=== PATIENT | female | born 1990 | race Hispanic/Latino ===

== ENCOUNTER 2016-09-28 19:55 | Emergency (ER) | payer MEDICAID ==
[2016-09-28 19:55] VITALS: BMI 30.9
[2016-09-28 20:08] VITALS: BP 131/65; PULSE 77; RESP 18; TEMP 98; O2SAT 99
--- NOTE | 2016-09-28 21:52 | C.PDOC ---
History Of Present Illness Patient is a 26 year old female who presents to the ER with a complaint of a sharp, substernal chest pain for the past 3 days. Patient has a PMHx of a heart murmur since . Denies fever, cough, recent travel or change with exertion. Chief Complaint (Nursing): Chest Pain History Per: Patient History/Exam Limitations: no limitations Onset/Duration Of Symptoms: Days (3) Current Symptoms Are (Timing): Still Present Quality: Sharp Associated Symptoms: Other ((-) Fever, Cough, change with exertion.) Modifying Factors: None Exacerbating Factors: None Alleviating Factors: None Recent travel outside of the [place]: No Past Medical History Reviewed: Historical Data, Nursing Documentation, Vital Signs Vital Signs: Last Vital Signs Temp 98 F 09/28/16 20:05 Pulse 77 09/28/16 20:05 Resp 18 09/28/16 20:05 BP 131/65 09/28/16 20:05 Pulse Ox 99 09/28/16 22:00 - Medical History PMH: No Chronic Diseases Surgical History: No Surg Hx - [facility] Procedures DELIVERY OF PRODUCTS OF CONCEPTION, EXTERNAL APPROACH (05/01/15) REPAIR FEMALE PERINEUM, EXTERNAL APPROACH (05/01/15) Family History: States: Unknown Family Hx - Social History Hx Tobacco Use: No Hx Alcohol Use: Yes Hx Substance Use: No - Immunization History Hx Tetanus Toxoid Vaccination: Yes Hx Influenza Vaccination: Yes Hx Pneumococcal Vaccination: No Review Of Systems Constitutional: Negative for: Fever Cardiovascular: Positive for: Chest Pain Respiratory: Negative for: Cough, SOB with Excertion Physical Exam - Physical Exam Appears: Non-toxic Skin: Normal Color, Warm, Dry Head: Atraumatic, Normacephalic Oral Mucosa: Moist Chest: Symmetrical, No Tenderness Cardiovascular: Rhythm Regular, Murmur (Systolic, left 4th intercostal space) Respiratory: Normal Breath Sounds, No Rales, No Rhonchi, No Wheezing Gastrointestinal/Abdominal: Soft, No Tenderness Neurological/Psych: Oriented x3, Normal Speech, Normal Cognition ED Course And Treatment ECG: Interpreted By Me, Viewed By Me ECG Interpretation: Normal Interpretation Of ECG: Normal axis and intervals Rate From EC O2 Sat by Pulse Oximetry: 99 (Room air) Pulse Ox Interpretation: Normal - Radiology CXR: Interpreted by Me, Viewed By Me CXR Interpretation: Yes: No Acute Disease Progress Note: EKG and CXR ordered. Disposition - Disposition Referrals: [facility] [Outside] [facility] [Outside] Disposition: HOME/ ROUTINE Disposition Time: 20:55 Condition: GOOD Additional Instructions: Thank you for letting us take care of you today. Your provider was Dr. Salamanca. You were treated for noncardiac chest pain. The emergency medical care you received today was directed at your acute symptoms. If you were prescribed any medication, please fill it and take as directed. It may take several days for your symptoms to resolve. Return to the Emergency Department if your symptoms worsen, do not improve, or if you have any other problems. Please contact your doctor or call one of the physicians/clinics you have been referred to that are listed on the Patient Visit Information form that is included in your discharge packet. Bring any paperwork you were given at discharge with you along with any medications you are taking to your follow up visit. Our treatment cannot replace ongoing medical care by a primary care provider (PCP) outside of the emergency department. Thank you for allowing the [facility] team to be part of your care today. Follow up with your doctor in 3-4 days for re-evaluation. Prescriptions: Ibuprofen [Motrin] 600 mg PO Q6 PRN #20 tab PRN Reason: Pain, Moderate (4-7) Instructions: Noncardiac Chest Pain (ED) - Clinical Impression Clinical Impression: Non-cardiac chest pain - Scribe Statement The provider has reviewed the documentation as recorded by the Scribe Gee Person All medical record entries made by the Scribe were at my direction and personally dictated by me. I have reviewed the chart and agree that the record accurately reflects my personal performance of the history, physical exam, medical decision making, and the department course for this patient. I have also personally directed, reviewed, and agree with the discharge instructions and disposition.
--- NOTE | 2016-09-29 10:25 | RAD ---
HISTORY: r/o infiltrate COMPARISON: 03/05/2016. TECHNIQUE: Chest PA and lateral FINDINGS: LUNGS: The lungs are well inflated and clear. PLEURA: No significant pleural effusion identified. No pneumothorax apparent. CARDIOVASCULAR: Normal. OSSEOUS STRUCTURES: No significant abnormalities. VISUALIZED UPPER ABDOMEN: Normal. OTHER FINDINGS: None. IMPRESSION: No active pulmonary disease.
== END 2016-09-28 21:09 | disposition home or self-care (01) ==
LOC: C.ER 19:55
DX: R07.89 Other chest pain (principal)

== ENCOUNTER 2017-10-10 10:26 | Emergency (ER) | payer MEDICAID ==
[2017-10-10 10:26] VITALS: BMI 30.9
--- NOTE | 2017-10-10 11:04 | C.PDOC ---
History Of Present Illness 27 year old female, with no significant PMHx, presents to the ED for evaluation of chest pain which began 3 days ago. Patient describes her pain as sharp and states is worsens when taking a deep breath and with movement. She has been taking Motrin and Tylenol without relief. Patient denies fever, chills, cough, shortness of breath, abdominal pain, leg pain, or recent travel. Chief Complaint (Nursing): Chest Pain History Per: Patient History/Exam Limitations: no limitations Onset/Duration Of Symptoms: Days (3) Current Symptoms Are (Timing): Still Present Quality: Sharp, "Pain" Exacerbating Factors: Movement, Deep Breathing Recent travel outside of the [place]: No Additional History Per: Patient Past Medical History Reviewed: Historical Data, Nursing Documentation, Vital Signs Vital Signs: Last Vital Signs Temp 98.8 F 10/10/17 10:34 Pulse 109 H 10/10/17 10:34 Resp 20 10/10/17 10:34 BP 117/85 10/10/17 10:34 Pulse Ox 97 10/10/17 11:11 - Medical History PMH: No Chronic Diseases Surgical History: No Surg Hx - [facility] Procedures DELIVERY OF PRODUCTS OF CONCEPTION, EXTERNAL APPROACH (05/01/15) REPAIR FEMALE PERINEUM, EXTERNAL APPROACH (05/01/15) Family History: States: Unknown Family Hx - Social History Hx Tobacco Use: No Hx Alcohol Use: Yes Hx Substance Use: No - Immunization History Hx Tetanus Toxoid Vaccination: Yes Hx Influenza Vaccination: Yes Hx Pneumococcal Vaccination: No Review Of Systems Constitutional: Negative for: Fever, Chills Cardiovascular: Positive for: Chest Pain Respiratory: Negative for: Cough, Shortness of Breath Gastrointestinal: Negative for: Abdominal Pain Physical Exam - Physical Exam Appears: Non-toxic, No Acute Distress Skin: Normal Color, Warm, Dry Head: Atraumatic, Normacephalic Eye(s): bilateral: Normal Inspection Oral Mucosa: Moist Neck: Supple Chest: Symmetrical, No Deformity, Tenderness (reproducible, to chest wall ) Cardiovascular: Rhythm Regular, No Murmur Respiratory: Normal Breath Sounds, No Rales, No Rhonchi, No Wheezing Gastrointestinal/Abdominal: Soft, No Tenderness, No Guarding, No Rebound Extremity: Normal ROM, No Tenderness, Capillary Refill (less than 2 seconds ) Neurological/Psych: Oriented x3, Normal Speech, Normal Cognition ED Course And Treatment - Laboratory Results Result Diagrams: 10/10/17 11:16 10/10/17 11:16 ECG: Interpreted By Me, Viewed By Me ECG Rhythm: Sinus Rhythm Interpretation Of ECG: Normal Sinus Rhythm at rate 95bpm. Normal intervals. Normal axis. No ST/T wave abnormalities. Rate From EC O2 Sat by Pulse Oximetry: 97 (on RA) Pulse Ox Interpretation: Normal Medical Decision Making Medical Decision Making: Assessment: chest pain Plan: * bloodwork * urinalysis * CXR * EKG * Toradol IVP * reassess and disposition Progress: bloodwork, urinalysis, CXR, EKG ordered and reviewed. Toradol IVP administered. patient improved. ct chest no pe, will discharge home to follow up with pmd in 2 days. Disposition Counseled Patient/Family Regarding: Studies Performed, Diagnosis, Need For Followup, Rx Given - Disposition Referrals: [facility] [Outside] Disposition: HOME/ ROUTINE Disposition Time: 13:58 Condition: STABLE Additional Instructions: follow up with your doctor in 2 days call to make an appointment take medication as prescribed return to ER if symptoms worsens or progress Prescriptions: Naproxen [Naprosyn] 500 mg PO BID PRN #16 tab PRN Reason: Pain, Moderate (4-7) Instructions: Costochondritis (DC) Forms: [facility] (South Korean), General Discharge Instructions, Work Excuse - Clinical Impression Clinical Impression: Chest wall pain - Scribe Statement The provider has reviewed the documentation as recorded by the Scribe (Jolynn Villeda) Provider Attestation: All medical record entries made by the Scribe were at my direction and personally dictated by me. I have reviewed the chart and agree that the record accurately reflects my personal performance of the history, physical exam, medical decision making, and the department course for this patient. I have also personally directed, reviewed, and agree with the discharge instructions and disposition.
[2017-10-10 11:20] LABS: BASO % 0.5 % (0.0-2.0); EOS # 0.3 K/uL (0.0-0.7); EOS % 4.7 % (0.0-4.0); HEMOGLOBIN 13.9 g/dL (11.0-16.0); LYMPH # 1.8 K/uL (1.0-4.3); LYMPH % 29.6 % (20.0-40.0); MEAN CELL VOLUME 82.8 fL (81.0-99.0); MEAN CORPUSCULAR HEMOGLOBIN 28.7 pg (27.0-31.0); MEAN CORPUSCULAR HGB CONC 34.7 g/dL (33.0-37.0); MEAN PLATELET VOLUME 7.7 fL (7.2-11.7); MONO # 0.3 K/uL (0.0-0.8); MONO % 5.3 % (0.0-10.0); NEUT # 3.7 K/uL (1.8-7.0); NEUT % 59.9 % (50.0-75.0); RBC 4.85 Mil/uL (3.80-5.20); RED CELL DISTRIBUTION WIDTH 12.8 % (11.5-14.5); WHITE BLOOD COUNT 6.1 K/uL (4.8-10.8)
[2017-10-10 11:28] LABS: SQUAMOUS EPITHIAL 12 /hpf (0-5); URINE BACTERIA RARE (<OCC); URINE BILIRUBIN NEGATIVE (NEGATIVE); URINE BLOOD NEGATIVE (NEGATIVE); URINE CLARITY Hazy (Clear); URINE COLOR Amber (YELLOW); URINE GLUCOSE (UA) NORMAL (Normal); URINE LEUKOCYTE ESTERASE 2+ Leu/uL (Negative); URINE PROTEIN NEGATIVE (NEGATIVE); URINE UROBILINOGEN NORMAL mg/dL (0.2-1.0)
[2017-10-10 11:34] LABS: ALB/GLOB RATIO 1.2 (1.0-2.1); ALBUMIN 4.5 g/dL (3.5-5.0); ALT/SGPT 37 U/L (9-52); AST/SGOT 31 U/L (14-36); BLOOD UREA NITROGEN 12 mg/dL (7-17); CALCIUM 9.3 mg/dl (8.6-10.4); GFR AFRICAN-AMERICAN > 60; GFR NON-AFRICAN AMERICAN > 60
--- NOTE | 2017-10-10 11:43 | RAD ---
HISTORY: COMPARISON: 09/28/2016 TECHNIQUE: Chest PA and lateral FINDINGS: LINES AND TUBES: None. LUNG AND PLEURA: The lungs are well inflated and clear. No pleural effusion or pneumothorax. HEART AND MEDIASTINUM: The heart is not enlarged. The hilar and mediastinal contours are within normal limits. SKELETAL STRUCTURES: The bony structures are within normal limits for the patient's age. VISUALIZED UPPER ABDOMEN: Normal. OTHER FINDINGS: None. IMPRESSION: No active pulmonary disease.
[2017-10-10] MEDS ORDERED: Iodixanol 320 MG/ML 100 ML BOTTLE IV ONE (12:38)
--- NOTE | 2017-10-10 13:54 | CT ---
PROCEDURE: CT Chest with contrast (Pulmonary Angiogram) HISTORY: Chest pain COMPARISON: Plain radiographs performed earlier the same day. TECHNIQUE: Axial computed tomography images were obtained of the chest in the pulmonary arterial phase of enhancement. Coronal and sagittal reformatted images were created and reviewed. Intravenous contrast dose: 100 mL Visipaque Radiation dose: Total exam DLP = 295.84 mGy-cm. This CT exam was performed using one or more of the following dose reduction techniques: Automated exposure control, adjustment of the mA and/or kV according to patient size, and/or use of iterative reconstruction technique. FINDINGS: PULMONARY ARTERIES: There are no filling defects in the pulmonary arteries to suggest pulmonary embolism. AORTA: No acute findings. No thoracic aortic aneurysm. LUNGS: The lungs are clear. There is multifocal linear atelectasis in the lower lobes. No nodule, mass or pulmonary consolidation. PLEURAL SPACES: No pleural effusion or pneumothorax. HEART: The heart is normal in size e. No cardiomegaly. No significant pericardial effusion. LYMPH NODES: No pathologic lymphadenopathy. BONES, CHEST WALL: Within normal limits for the patient's age. No fracture or destructive lesion OTHER FINDINGS: There is a solitary 8 mm gallstone. The adrenal glands are normal. IMPRESSION: No CTA evidence for acute pulmonary embolism. No focal consolidation, pleural effusion or pneumothorax. Cholelithiasis.
[2017-10-10 14:39] VITALS: BP 123/76; PULSE 76; RESP 18; TEMP 98.3; O2SAT 98
--- NOTE | 2017-10-11 17:19 | CARD ---
APPROVED REPORT EKG Measurement Heart [id number] <Conclusion> Normal sinus rhythm Normal ECG
== END 2017-10-10 15:02 | disposition home or self-care (01) ==
LOC: C.ER 10:26
DX: R07.89 Other chest pain (principal)
CPT/HCPCS: 71046; 71275; 80053; 81001; 84484; 85025; 85378; 93005; 96374; 99284; J1885; Q9967

== ENCOUNTER 2018-02-18 18:16 | Emergency (ER) | payer MEDICAID ==
[2018-02-18 18:17] VITALS: BMI 30.9
[2018-02-18 19:31] LABS: SQUAMOUS EPITHIAL 9 /hpf (0-5); URINE BILIRUBIN NEGATIVE (NEGATIVE); URINE BLOOD 1+ (NEGATIVE); URINE CLARITY Hazy (Clear); URINE COLOR Yellow (YELLOW); URINE GLUCOSE (UA) NORMAL (Normal); URINE LEUKOCYTE ESTERASE 2+ Leu/uL (Negative); URINE PROTEIN 1+ mg/dL (NEGATIVE); URINE UROBILINOGEN NORMAL mg/dL (0.2-1.0)
[2018-02-18] MEDS ORDERED: Sodium Chloride 0.9% 1,000 ML IV ONE (20:08)
[2018-02-18] MEDS ORDERED: Sodium Chloride 0.9% 1,000 ML IV SCH (20:15)
--- NOTE | 2018-02-18 20:15 | C.PDOC ---
History Of Present Illness 28 y/o female presents with left flank pain since 4:30 this morning. Pain is described as sharp, constant, and radiating to her left lower abdomen. Patient also reports chills. She denies any nausea, vomiting, fever, or changes in bowel function. Patient also states for the past few days she has had UTI symptoms, (+) dysuria but no hematuria. States she has had UTIs in the past. Patient did not take any pain medication prior to arrival. LMP was in May 2017, patient is on depo provera. Time Seen by Provider: 02/18/18 19:07 Chief Complaint (Nursing): Female Genitourinary History Per: Patient History/Exam Limitations: no limitations Onset/Duration Of Symptoms: Hrs Current Symptoms Are (Timing): Still Present Location Of Pain/Discomfort: LLQ Radiation Of Pain To:: Flank Associated Symptoms: Urinary Symptoms Past Medical History Reviewed: Historical Data, Nursing Documentation, Vital Signs Vital Signs: Last Vital Signs Temp 98.4 F 02/18/18 18:31 Pulse 82 02/18/18 18:31 Resp 18 02/18/18 18:31 BP 125/71 02/18/18 18:31 Pulse Ox 95 02/18/18 18:31 - Medical History Other PMH: Cardiac murmur Surgical History: No Surg Hx - [facility] Procedures DELIVERY OF PRODUCTS OF CONCEPTION, EXTERNAL APPROACH (05/01/15) REPAIR FEMALE PERINEUM, EXTERNAL APPROACH (05/01/15) Family History: States: Unknown Family Hx - Social History Hx Tobacco Use: No Hx Alcohol Use: Yes Hx Substance Use: No - Immunization History Hx Tetanus Toxoid Vaccination: Yes Hx Influenza Vaccination: No Hx Pneumococcal Vaccination: No Review Of Systems Except As Marked, All Systems Reviewed And Found Negative. Constitutional: Positive for: Chills. Negative for: Fever Gastrointestinal: Positive for: Abdominal Pain (and left flank pain). Negative for: Nausea, Vomiting, Diarrhea, Constipation Genitourinary: Positive for: Dysuria. Negative for: Hematuria Physical Exam - Physical Exam Appears: Non-toxic, No Acute Distress Skin: Normal Color, Warm, Dry Head: Atraumatic, Normacephalic Eye(s): bilateral: Normal Inspection Oral Mucosa: Moist Neck: Normal ROM Chest: Symmetrical Cardiovascular: Rhythm Regular, Murmur (systolic) Respiratory: Normal Breath Sounds, No Rales, No Rhonchi, No Wheezing Gastrointestinal/Abdominal: Bowel Sounds (normal), Soft, Tenderness (to the left suprapubic area), No Rebound Back: CVA Tenderness (Left), No Vertebral Tenderness Extremity: Bilateral: Atraumatic, Normal Color And Temperature Neurological/Psych: Oriented x3, Normal Speech ED Course And Treatment - Laboratory Results Result Diagrams: 02/18/18 20:31 02/18/18 20:31 O2 Sat by Pulse Oximetry: 95 (RA) Pulse Ox Interpretation: Normal - CT Scan/US CT abd/pelvis Other Rad Studies (CT/US): Read By Radiologist, Radiology Report Reviewed CT/US Interpretation: CT of the abdomen and pelvis without contrast. Clinical statement: Pain. Technique: Multiple axial CT images were obtained from the base of the lungs to the floor of the pelvis utilizing 5 mm axial slices without administration of contrast. Coronal and sagittal reconstructions were also obtained. Comparison: 01/23/2016. Findings: Chest: The visualized lung bases are clear. Abdomen: The kidneys are normal in size bilaterally. There is no evidence of hydronephrosis or nephrolithiasis. There is a 6 mm stone in the neck of the gallbladder. No pericholecystic inflammatory changes are seen however. The liver, spleen, pancreas, and adrenal glands are unremarkable. The aorta dem onstrates normal caliber and contour. There is no abdominal lymphadenopathy or ascites. Thick walled fluid filled duodenum and loops of jejunum compatible with enteritis. Infectious and inflammatory etiologies are considered. Pelvis: The appendix is normal. The urinary bladder is within normal limits. There is no pelvic lymphadenopathy or ascites. The other pelvic structures appear unremarkable. Bones: There are no suspicious osseous abnormalities seen. Impression: 1. No evidence of hydronephrosis or nephrolithiasis. 2. Thick walled fluid filled duodenum and loops of jejunum compatible with enteritis. Infectious and inflammatory etiologies are considered. 3. Cholelithiasis without evidence of acute cholecystitis. . Electronically signed on Feb 18, 2018 10:09:07 PM EST by: Darwin Caldwell M.D., TYLER Certified By ABR & CBC[employer]. Fellowship Trained MRI and CT Specialist Medical Decision Making Medical Decision Making: Impression: Left flank pain, dysuria Initial Plan: --Blood work --UA --Urine culture --IV fluids --Toradol 30 mg IVP --Tylenol 975 mg PO --CT Abd/Pelvis without contrast Imaging results were discussed with the patient, there was no evidence of kidney stone. Patient states her last BM was today, patient will get a dose of antibiotics prior to D/C and will be treated for a UTI. Disposition Counseled Patient/Family Regarding: Studies Performed, Diagnosis, Need For Followup - Disposition Referrals: [facility] [Outside] Disposition: HOME/ ROUTINE Disposition Time: 22:27 Condition: STABLE Additional Instructions: YVONNE LAWSON, thank you for letting us take care of you today. Your provider was Pearl Ozuna MD and you were treated for LEFT FLANK PAIN ,BACK PAIN. The emergency medical care you received today was directed at your acute symptoms. If you were prescribed any medication, please fill it and take as directed. It may take several days for your symptoms to resolve. Return to the Emergency Department if your symptoms worsen, do not improve, or if you have any other problems. Please contact your doctor or call one of the physicians/clinics you have been referred to that are listed on the Patient Visit Information form that is included in your discharge packet. Bring any paperwork you were given at discharge with you along with any medications you are taking to your follow up visit. Our treatment cannot replace ongoing medical care by a primary care provider outside of the emergency department. Thank you for allowing the [facility] team to be part of your care today. If you had a blood, urine, or wound culture: It will take several days for the results, if any change in treatment is needed we will contact you. Prescriptions: Nitrofurantoin Macrocrystals [Macrobid] 100 mg PO BID #14 cap Instructions: Urinary Tract Infection, Adult (DC) Forms: [employer] (Kyrgyz), General Discharge Instructions - POA Present On Arrival: None - Clinical Impression Clinical Impression: UTI (urinary tract infection) - Scribe Statement The provider has reviewed the documentation as recorded by the Jamesibtodd Weston Provider Attestation: All medical record entries made by the Jamesibe were at my direction and personally dictated by me. I have reviewed the chart and agree that the record accurately reflects my personal performance of the history, physical exam, me dical decision making, and the department course for this patient. I have also personally directed, reviewed, and agree with the discharge instructions and disposition.
[2018-02-18] MEDS ORDERED: cefTRIAXone IV 1 gm in Dextros 50 ML IVPB STA (20:19)
[2018-02-18] MEDS ORDERED: Azithromycin 500 MG in Sodium Chloride 0.9% 250 ML IVPB STA (20:20)
[2018-02-18 20:33] LABS: BASO # 0.1 K/uL (0.0-0.2); BASO % 0.7 % (0.0-2.0); EOS # 0.5 K/uL (0.0-0.7); EOS % 5.8 % (0.0-4.0); LYMPH # 2.5 K/uL (1.0-4.3); LYMPH % 31.2 % (20.0-40.0); MEAN CELL VOLUME 84.4 fL (81.0-99.0); MEAN CORPUSCULAR HEMOGLOBIN 28.7 pg (27.0-31.0); MONO # 0.4 K/uL (0.0-0.8); NEUT # 4.7 K/uL (1.8-7.0); NEUT % 57.3 % (50.0-75.0); NRBC % 0.1 % (0.0-2.0); RBC 4.53 Mil/uL (3.80-5.20); RED CELL DISTRIBUTION WIDTH 12.5 % (11.5-14.5); WHITE BLOOD COUNT 8.1 K/uL (4.8-10.8)
[2018-02-18 20:50] LABS: BLOOD UREA NITROGEN 18 mg/dL (7-17); CALCIUM 8.8 mg/dl (8.6-10.4); GFR NON-AFRICAN AMERICAN > 60
[2018-02-18] MEDS ORDERED: Sodium Chloride 0.9% 1,000 ML ONE (20:58)
[2018-02-18 22:39] VITALS: BP 119/73; PULSE 71; RESP 13; TEMP 97.9
[2018-02-18 22:47] VITALS: O2SAT 95
--- NOTE | 2018-02-19 10:15 | CT ---
PROCEDURE: CT Abdomen and Pelvis without Oral or IV contrast. HISTORY: left cva tender r/o kidney stone COMPARISON: None available. TECHNIQUE: Contiguous axial images of the abdomen and pelvis. No oral or IV contrast administered. Coronal and Sagittal reformats generated and reviewed. Radiation dose: Total exam DLP = 675.89 mGy-cm. This CT exam was performed using one or more of the following dose reduction techniques: Automated exposure control, adjustment of the mA and/or kV according to patient size, and/or use of iterative reconstruction technique. FINDINGS: There is limited evaluation of the solid organs without the administration of IV contrast. LOWER THORAX: Mild bibasilar atelectasis. There is no visible pleural effusion or pneumothorax. LIVER: Unremarkable unenhanced appearance. GALLBLADDER AND BILE DUCTS: Gallstone measuring approximately 6 mm at the level of the gallbladder neck. PANCREAS: Unremarkable unenhanced appearance. SPLEEN: Unremarkable unenhanced appearance. ADRENALS: Unremarkable unenhanced appearance. KIDNEYS AND URETERS: No hydronephrosis or obstructing renal calculus. Punctate approximately 2 mm nonobstructing right renal calculus. BLADDER: Under distention of the urinary bladder appears otherwise unremarkable. REPRODUCTIVE: Uterus is present. APPENDIX: The appendix appears within normal limits of caliber. No secondary signs of acute appendicitis. BOWEL: The stomach is nondistended. Lack of oral contrast limits evaluation for bowel pathology. The bowel loops appear within normal limits of caliber without evidence of intestinal obstruction. Several small bowel loops appear mildly thick walled, presumably exaggerated by under distension. Correlate clinically. PERITONEUM: No significant free fluid. No definite free air. LYMPH NODES: No bulky lymphadenopathy identified. VASCULATURE: No atherosclerotic calcification the aorta present. No aortic aneurysm. BONES: No acute osseous abnormality is detected. OTHER FINDINGS: None. IMPRESSION: Gallstone measuring approximately 6 mm at the level of the gallbladder neck. Punctate nonobstructing right renal calculus. No evidence of hydronephrosis bilaterally. Several small bowel loops appear mildly thick walled, presumably exaggerated by under distension. Correlate clinically. Additional findings as above. Preliminary impression was provided by [email or web address].
== END 2018-02-18 22:55 | disposition home or self-care (01) ==
LOC: C.ER 18:16
DX: N39.0 Urinary tract infection, site not specified (principal)
CPT/HCPCS: 74176; 80048; 81001; 84703; 85025; 87086; 96361; 96374; 99285; J1885; J7030

== ENCOUNTER 2018-04-21 18:07 | Emergency (ER) | payer MEDICAID ==
[2018-04-21 18:12] VITALS: BMI 29.2
--- NOTE | 2018-04-21 19:00 | RAD ---
Date of service: 04/21/2018 HISTORY: Chest pain COMPARISON: 10/10/2017 TECHNIQUE: Chest PA and lateral FINDINGS: LUNGS: No active pulmonary disease. PLEURA: No significant pleural effusion identified. No pneumothorax apparent. CARDIOVASCULAR: No aortic atherosclerotic calcification present. Normal cardiac size. No pulmonary vascular congestion. OSSEOUS STRUCTURES: No significant abnormalities. VISUALIZED UPPER ABDOMEN: Normal. OTHER FINDINGS: None. IMPRESSION: No active disease. No significant interval change compared to the prior examination(s).
--- NOTE | 2018-04-21 19:18 | C.PDOC ---
History Of Present Illness 28 year old female presents to the emergency department with complaints of mid- sternal chest pain for the last few days. Patient states that she recently got over a cold, and her coughing has been improved. Patient denies other complaints at this time. Time Seen by Provider: 04/21/18 18:42 Chief Complaint (Nursing): Chest Pain History Per: Patient History/Exam Limitations: no limitations Onset/Duration Of Symptoms: Days Current Symptoms Are (Timing): Still Present Quality: "Pain" Past Medical History Reviewed: Historical Data, Nursing Documentation, Vital Signs Vital Signs: Last Vital Signs Temp 97.9 F 04/21/18 18:12 Pulse 76 04/21/18 19:11 Resp 18 04/21/18 19:11 BP 116/76 04/21/18 19:11 Pulse Ox 100 04/21/18 19:11 - Medical History PMH: No Chronic Diseases Surgical History: No Surg Hx - [facility] Procedures DELIVERY OF PRODUCTS OF CONCEPTION, EXTERNAL APPROACH (05/01/15) REPAIR FEMALE PERINEUM, EXTERNAL APPROACH (05/01/15) Family History: States: No Known Family Hx - Social History Hx Tobacco Use: No Hx Alcohol Use: Yes Hx Substance Use: No - Immunization History Hx Tetanus Toxoid Vaccination: No Hx Influenza Vaccination: No Hx Pneumococcal Vaccination: No Review Of Systems Except As Marked, All Systems Reviewed And Found Negative. Constitutional: Negative for: Fever, Chills Cardiovascular: Positive for: Chest Pain Respiratory: Positive for: Cough Gastrointestinal: Negative for: Nausea, Vomiting, Abdominal Pain, Diarrhea Physical Exam - Physical Exam Appears: Non-toxic, No Acute Distress Skin: Warm, Dry Head: Atraumatic, Normacephalic Eye(s): bilateral: Normal Inspection, PERRL, EOMI Neck: Normal, Supple Chest: Symmetrical, No Tenderness Cardiovascular: Rhythm Regular, No Murmur Respiratory: Normal Breath Sounds, No Rales, No Rhonchi, No Wheezing Gastrointestinal/Abdominal: Soft, No Tenderness Extremity: Normal ROM Neurological/Psych: Oriented x3, Normal Speech, Normal Cognition ED Course And Treatment ECG: Interpreted By Me, Viewed By Me ECG Rhythm: Sinus Rhythm ECG Interpretation: Normal, No Acute Changes Rate From EC O2 Sat by Pulse Oximetry: 100 (RA) Pulse Ox Interpretation: Normal Medical Decision Making Medical Decision Making: cp perc neg. no ekg changes. 05/17 recnet cough Plan: EKG CXR Tylenol 975mg PO POC Urine Patient is PERC negative. cxr neg. also requests eval for left sided "bump" since nov. appears to be ?lymph node. no fluctance. adivsed no emergent indication for imaging. advised will need outpt bx. cannot r/o malginancy vs lymphoma vs other eitology. pt verbalzies understanding. Disposition - Disposition Referrals: [facility] [Outside] [facility] [Outside] Disposition: HOME/ ROUTINE Disposition Time: 20:00 Condition: GOOD Additional Instructions: pleas follow up with your doctor/clinic. reutrn to er with worsening symptoms or concerns. Instructions: Chest Pain Forms: [employer] [facility] (Welsh) - Clinical Impression Clinical Impression: Chest pain - Scribe Statement The provider has reviewed the documentation as recorded by the Scribe (Benji Hines) Provider Attestation: All medical record entries made by the Scribe were at my direction and personally dictated by me. I have reviewed the chart and agree that the record accurately reflects my personal performance of the history, physical exam, medical decision making, and the department course for this patient. I have also personally directed, reviewed, and agree with the discharge instructions and disposition.
[2018-04-21 20:41] VITALS: BP 118/74; PULSE 73; RESP 20; TEMP 98.3
[2018-04-21 23:59] VITALS: O2SAT 100
--- NOTE | 2018-04-22 12:08 | CARD ---
APPROVED REPORT Date of service: 04/21/2018 EKG Measurement Heart [id number] <Conclusion> Normal sinus rhythm Normal ECG
== END 2018-04-21 20:56 | disposition home or self-care (01) ==
LOC: C.ER 18:07
DX: R07.9 Chest pain, unspecified (principal)

== ENCOUNTER 2018-04-28 15:58 | Emergency (ER) | payer MEDICAID ==
[2018-04-28 15:59] VITALS: BMI 29.2
[2018-04-28 16:35] VITALS: TEMP 98; O2SAT 98
[2018-04-28 17:56] LABS: SQUAMOUS EPITHIAL 13 /hpf (0-5); URINE BILIRUBIN NEGATIVE (NEGATIVE); URINE BLOOD NEGATIVE (NEGATIVE); URINE CLARITY Hazy (Clear); URINE COLOR Yellow (YELLOW); URINE GLUCOSE (UA) NORMAL (Normal); URINE LEUKOCYTE ESTERASE TRACE Leu/uL (Negative); URINE PROTEIN 1+ mg/dL (NEGATIVE); URINE UROBILINOGEN NORMAL mg/dL (0.2-1.0)
[2018-04-28 17:58] LABS: HCG,QUALITATIVE URINE NEGATIVE (NEGATIVE)
--- NOTE | 2018-04-28 18:05 | C.PDOC ---
History Of Present Illness Patient is a 28 year old female who presents to the ED complaining of nausea, vomiting, diarrhea for the past 3 days. She notes associated abdominal distension and chest discomfort. She has not taken any remedies for her symptoms. Patient states that on Apr.21 she presented with viral syndrome. 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 She denies any SOB, urinary symptoms, headaches, fever, or chills. Time Seen by Provider: 04/28/18 17:51 Chief Complaint (Nursing): Abdominal Pain History Per: Patient History/Exam Limitations: no limitations Onset/Duration Of Symptoms: Days (3) Current Symptoms Are (Timing): Still Present Associated Symptoms: Nausea, Vomiting, Diarrhea, Other (chest discomfort and abdominal distension. denies headache or SOB). denies: Fever, Chills, Urinary Symptoms Recent travel outside of the [place]: No Additional History Per: Patient Past Medical History Reviewed: Historical Data, Nursing Documentation, Vital Signs Vital Signs: Last Vital Signs Temp 98.0 F 04/28/18 16:32 Pulse 95 H 04/28/18 16:32 Resp 18 04/28/18 16:32 BP 140/91 H 04/28/18 16:32 Pulse Ox 98 04/28/18 16:32 - Medical History PMH: No Chronic Diseases Surgical History: No Surg Hx - [facility] Procedures DELIVERY OF PRODUCTS OF CONCEPTION, EXTERNAL APPROACH (05/01/15) REPAIR FEMALE PERINEUM, EXTERNAL APPROACH (05/01/15) Family History: States: Unknown Family Hx - Social History Hx Tobacco Use: No Hx Alcohol Use: Yes Hx Substance Use: No - Immunization History Hx Tetanus Toxoid Vaccination: No Hx Influenza Vaccination: No Hx Pneumococcal Vaccination: No Review Of Systems Constitutional: Negative for: Fever, Chills Respiratory: Positive for: Other (chest discomfort ). Negative for: Shortness of Breath Gastrointestinal: Positive for: Nausea, Vomiting, Abdominal Pain (distension ), Diarrhea Genitourinary: Negative for: Dysuria, Incontinence, Hematuria Neurological: Negative for: Headache Physical Exam - Physical Exam Appears: Non-toxic, No Acute Distress Skin: Normal Color, Warm, Dry Head: Atraumatic, Normacephalic Oral Mucosa: Dry Neck: Normal, Supple Chest: Symmetrical, No Deformity Cardiovascular: Rhythm Regular, No Murmur Respiratory: Normal Breath Sounds, No Rales, No Rhonchi, No Wheezing Gastrointestinal/Abdominal: Soft, Other (obese) Extremity: Normal ROM, No Tenderness, No Pedal Edema, No Calf Tenderness Neurological/Psych: Oriented x3, Normal Speech, Normal Cognition ED Course And Treatment - Laboratory Results Lab Results: Urine Color Yellow (YELLOW) 04/28/18 17:28 Urine Clarity Hazy (Clear) 04/28/18 17:28 Urine pH 5.0 (5.0-8.0) 04/28/18 17:28 Ur Specific [place] 1.035 (1.003-1.030) H 04/28/18 17:28 Urine Protein 1+ mg/dL (NEGATIVE) H 04/28/18 17:28 Urine Glucose (UA) Normal mg/dL (Normal) 04/28/18 17:28 Urine Ketones Negative mg/dL (NEGATIVE) 04/28/18 17:28 Urine Blood Negative (NEGATIVE) 04/28/18 17:28 Urine Nitrate Negative (NEGATIVE) 04/28/18 17:28 Urine Bilirubin Negative (NEGATIVE) 04/28/18 17:28 Urine Urobilinogen Normal mg/dL (0.2-1.0) 04/28/18 17:28 Ur Leukocyte Esterase Trace [place]/uL (Negative) 04/28/18 17:28 Urine WBC (Auto) 5 /hpf (0-5) 04/28/18 17:28 Urine RBC (Auto) 4 /hpf (0-3) H 04/28/18 17:28 Ur Squamous Epith Cells 13 /hpf (0-5) H 04/28/18 17:28 Urine HCG, Qual Negative (NEGATIVE) 04/28/18 17:28 Urine HCG, Qual Negative (NEGATIVE) 04/28/18 17:28 Urine POC: Negative (ua neg.) O2 Sat by Pulse Oximetry: 98 (on RA) Pulse Ox Interpretation: Normal Progress Note: pepcid, maalox, zofran Reevaluation Time: 18:03 Reassessment Condition: Improved Medical Decision Making Medical Decision Making: Plan: Urinalysis HCG Pepcid 20mg PO Zofran 4mg PO Maalox Plus 30ml viral GI upset BRAT diet educated Disposition Doctor Will See Patient In The: Office Counseled Patient/Family Regarding: Studies Performed, Diagnosis - Disposition Referrals: [facility] [Outside] [facility] [Outside] [facility] [Outside] [place] [facility] [Outside] Disposition: HOME/ ROUTINE Disposition Time: 18:04 Condition: GOOD Additional Instructions: plenty of fluids/Gatorade BRAT diet: Bananas, white rice, applesauce, toast/bread pepcid 20 mg every 12 hours, lowers stomach acid- gastritis due to viral syndrome Maalox 30 cc's (one tablespoon) 5-7x/day- eases abdominal discomforts Zofran ODT 4 mg tabs once every 6-8 hours for nausea/vomiting dissolves under tongue outpatient follow-up as needed. Prescriptions: Ondansetron ODT [Zofran ODT] 4 mg PO Q6H PRN #6 odt PRN Reason: Nausea/Vomiting Instructions: Diarrhea in Adolescents and Adults, Viral Gastroenteritis Forms: [facility] (Frisian) - Clinical Impression Clinical Impression: Nausea and vomiting, Diarrhea - Scribe Statement The provider has reviewed the documentation as recorded by the Jamesibtodd Molina
[2018-04-28] MEDS ORDERED: Alum-Mag Hydrox-Simethicone Susp (30 mL) PO STA (18:08)
[2018-04-28] MEDS ORDERED: Alum-Mag Hydrox-Simethicone Susp (30 mL) ONE (18:20)
[2018-04-28 18:24] VITALS: BP 115/73; PULSE 86; RESP 16
== END 2018-04-28 18:24 | disposition home or self-care (01) ==
LOC: C.ER 15:58
DX: R11.2 Nausea with vomiting, unspecified (principal); R19.7 Diarrhea, unspecified